=== PATIENT | male | born 1970 | race Caucasian/White ===

== ENCOUNTER → 2018-02-22 13:46 | Outpatient (CLI) | payer OTHER, SELFPAY ==
--- NOTE | 2018-02-22 13:54 | US_ITS ---
STUDY: RENAL ULTRASOUND - COMPLETE REASON FOR EXAM: Male, 47 years old. Left flank pain TECHNIQUE: Ultrasound evaluation of the kidneys was performed with real-time and static morales-scale imaging. COMPARISON: None. FINDINGS: RIGHT KIDNEY: Normal location of the right kidney, which is normal in size. The right kidney measures 13.5 x 7.5 x 5.5 cm. There is a lobular contoured cortex of the right kidney. The renal cortex measures 1.7 cm. There is no right renal mass or cyst. There are no right renal calculi. There is no right hydronephrosis. DISTAL RIGHT URETER: There is non-visualization of the distal right ureter. There is no demonstrated right ureterovesical junction calculus. There is a visualized right ureteral jet. LEFT KIDNEY: Normal location of the left kidney, which is normal in size. The left kidney measures 13 x 6.5 x 7 cm. There is a lobular contour to of the left kidney. The renal cortex measures 1.9 cm. There is no left renal mass or cyst. There are no left renal calculi. There is no left hydronephrosis. DISTAL LEFT URETER: There is non-visualization of the distal left ureter. There is no demonstrated left ureterovesical junction calculus. There is a visualized left ureteral jet. BLADDER: The distended urinary bladder has a volume of 310 ml. The empty urinary bladder has a volume of 35 ml. There is a normal wall thickness of the distended urinary bladder. There is no demonstrated mass within the urinary bladder. There are no demonstrated bladder calculi. US/Kidney and Bladder IMPRESSION: Normal ultrasound of the kidneys and urinary bladder. Electronically Signed: Marisol Meza MD at 6:37 EST , Service support ,
--- NOTE | 2018-02-22 13:55 | US_ITS ---
STUDY: SCROTUM ULTRASOUND REASON FOR EXAM: Male, 47 years old. Left scrotal and groin pain for several months TECHNIQUE: Ultrasound evaluation of the scrotum was performed with color Doppler and static garcia-scale imaging. COMPARISON: None. FINDINGS: RIGHT TESTICLE INTRATESTICULAR: There is a normal size of the right testicle. The right testicle measures 4.2 x 3 x 2.5 cm. There is a homogenous echotexture. There is normal arterial and normal venous vascularity. There is no demonstrated right testicular mass or cyst. EXTRATESTICULAR: The epididymis is normal in size. The epididymis head measures 0.6 x 1 x 0.9 cm. There is normal vascularity of the epididymis. There is no demonstrated epididymal cystic structure. There is a small hydrocele. There is no demonstrated varicocele. There is no demonstrated extratesticular mass or cyst. LEFT TESTICLE INTRATESTICULAR: There is a normal size of the left testicle. The left testicle measures 4.1 x 3 x 2.3 cm. There is a homogenous echotexture. There is normal arterial and normal venous vascularity. There is no demonstrated left testicular mass or cyst. EXTRATESTICULAR: The epididymis is normal in size. The epididymis head measures 0.8 x 1 x 0.8 cm. There is normal vascularity of the epididymis. There is no demonstrated epididymal cystic structure. There is no demonstrated hydrocele. There is no demonstrated varicocele. There is no demonstrated extratesticular mass or cyst. US/Testicular with Arterial Flow IMPRESSION: Normal bilateral testicles. Small bilateral hydroceles. Electronically Signed: Marisol Meza MD at 6:38 EST , Service support ,
--- OUTSIDE RECORDS SUMMARY | 2018-04-20 03:12 | XMS RPT_ITS ---
:1970 Author Organization [facility] Care Team Providers Name Role Phone SHANICE YOUNG Attending Unavailable HANNAH, SHANICE B Primary Care Unavailable HANNAH, SHANICE B Admitting Unavailable HANNAH, SHANICE B Attending Unavailable HANNAH, SHANICE B Primary Care Unavailable HANNAH, SHANICE B Admitting Unavailable HANNAH, SHANICE B Attending Unavailable HANNAH, SHANICE B Primary Care Unavailable HANNAH, SHANICE B Attending Unavailable HANNAH, SHANICE B Primary Care Unavailable HANNAH, SHANICE B Attending Unavailable HANNAH, SHANICE B Primary Care Unavailable HANNAH, SHANICE B Admitting Unavailable Genie Merritt Attending Unavailable Genie Merritt Referring Unavailable Hannah, Shanice Primary Care Unavailable PROBLEMS PROBLEMS DATE TYPE CONDITION / CODE ATTENDING STATUS SOURCE 02/22/2018 Unknown N50.82 - Scrotal Genie Merritt Active Esteban pain / M [facility] N50.82(ICD-10) Hospital Repository PROCEDURES PROCEDURES No Procedure Records FoundRESULTS RESULTS TESTICULAR WITH Observed: 02/22/2018 Status: F Source: ESTEBAN ARTERIAL FLOW 1:56 PM [facility] REPOSITORY [facility] Imaging Services [address] [place] [address] Testicular with Arterial Flow MR#: [id number] Acct: [id number] Name: NGOC DECKER Rep #: [id number] : 1970 M 47 From: Marisol Meza MD PCP: Shanice Young Status: REG CLI Study: Testicular with Arterial Flow Date of Exam: 02/22/18 Exam# [id number] Ordering Dr: Genie Merritt STUDY: SCROTUM ULTRASOUND REASON FOR EXAM: Male, 47 years old. Left scrotal and groin pain for several months TECHNIQUE: Ultrasound evaluation of the scrotum was performed with color Doppler and static garcia-scale imaging. COMPARISON: None. FINDINGS: RIGHT TESTICLE INTRATESTICULAR: There is a normal size of the right testicle. The right testicle measures 4.2 x 3 x 2.5 cm. There is a homogenous echotexture. There is normal arterial and normal venous vascularity. There is no demonstrated right testicular mass or cyst. EXTRATESTICULAR: The epididymis is normal in size. The epididymis head measures 0.6 x 1 x 0.9 cm. There is normal vascularity of the epididymis. There is no demonstrated epididymal cystic structure. There is a small hydrocele. There is no demonstrated varicocele. There is no demonstrated extratesticular mass or cyst. LEFT TESTICLE INTRATESTICULAR: There is a normal size of the left testicle. The left testicle measures 4.1 x 3 x 2.3 cm. There is a homogenous echotexture. There is normal arterial and normal venous vascularity. There is no demonstrated left testicular mass or cyst. EXTRATESTICULAR: The epididymis is normal in size. The epididymis head measures 0.8 x 1 x 0.8 cm. There is normal vascularity of the epididymis. There is no demonstrated epididymal cystic structure. There is no demonstrated hydrocele. There is no demonstrated varicocele. There is no demonstrated extratesticular mass or cyst. US/Testicular with Arterial Flow IMPRESSION: Normal bilateral testicles. Small bilateral hydroceles. Electronically Signed: Marisol Meza MD at 6:38 EST , Service support , CC: Shanice Young; Genie Merritt NP Truck Service Manager: Signed KIDNEY AND BLADDER Observed: 02/22/2018 Status: F Source: ESTEBAN 1:55 PM [facility] REPOSITORY [facility] Imaging Services [address] [place] [address] Kidney and Bladder MR#: [id number] Acct: [id number] Name: NGOC DECKER Rep #: [id number] : 1970 M 47 From: Marisol Meza MD PCP: Shanice Young Status: REG CLI Study: Kidney and Bladder Date of Exam: 02/22/18 Exam# [id number] Ordering Dr: Genie Merritt [employer] STUDY: RENAL ULTRASOUND - COMPLETE REASON FOR EXAM: Male, 47 years old. Left flank pain TECHNIQUE: Ultrasound evaluation of the kidneys was performed with real-time and static morales-scale imaging. COMPARISON: None. FINDINGS: RIGHT KIDNEY: Normal location of the right kidney, which is normal in size. The right kidney measures 13.5 x 7.5 x 5.5 cm. There is a lobular contoured cortex of the right kidney. The renal cortex measures 1.7 cm. There is no right renal mass or cyst. There are no right renal calculi. There is no right hydronephrosis. DISTAL RIGHT URETER: There is non-visualization of the distal right ureter. There is no demonstrated right ureterovesical junction calculus. There is a visualized right ureteral jet. LEFT KIDNEY: Normal location of the left kidney, which is normal in size. The left kidney measures 13 x 6.5 x 7 cm. There is a lobular contour to of the left kidney. The renal cortex measures 1.9 cm. There is no left renal mass or cyst. There are no left renal calculi. There is no left hydronephrosis. DISTAL LEFT URETER: There is non-visualization of the distal left ureter. There is no demonstrated left ureterovesical junction calculus. There is a visualized left ureteral jet. BLADDER: The distended urinary bladder has a volume of 310 ml. The empty urinary bladder has a volume of 35 ml. There is a normal wall thickness of the distended urinary bladder. There is no demonstrated mass within the urinary bladder. There are no demonstrated bladder calculi. US/Kidney and Bladder IMPRESSION: Normal ultrasound of the kidneys and urinary bladder. Electronically Signed: Marisol Meza MD at 6:37 EST , Service support , CC: Shanice Young; Genie Merritt NP Truck Service Manager: Signed CMP Collected: 03/30/2017 Status: F Source: CHURCH 8:37 AM [facility] REPOSITORY TYPE CODE TESTS RESULT OUT OF RANGE REFERENCE UNITS LAB 84037855(L 70-99 mg/dL OINC) High Glucose Lvl 255 LAB 93349719(L 8.4-10.2 mg/dL OINC) Calcium Normal Lvl 9.2 LAB 69288729(L 136-145 mEq/L OINC) Sodium Normal Lvl 136 LAB 70591743(L 3.5-5.1 mEq/L OINC) Normal Potassium Lvl 5.0 LAB 65957351(L 98-107 mEq/L OINC) Chloride Normal 104 LAB 07218946(L 24.0-30.0 mEq/L OINC) CO2 Normal 26.3 LAB 12417619(L 7-18 mg/dL OINC) BUN Normal 16 LAB 3803219(LO 0.6-1.3 mg/dL INC) Normal Creatinine 0.8 LAB 61635579(L 42-121 Int._Unit/ OINC) L Alk Phos Normal 87 LAB 10598153(L 0.2-1.0 mg/dL OINC) Bili Normal Total 0.5 LAB 66776979(L 3.2-5.0 G/DL OINC) Albumin Normal Lvl 4.1 LAB 19157972(L 6.4-8.3 G/DL OINC) Total Normal Protein 6.7 LAB 42199155(L 10-40 Int._Unit/ OINC) L ALT Normal 18 LAB 53914396(L 10-42 Int._Unit/ OINC) L AST Normal 21 LAB 18880275(L 5.4-30.0 ratio OINC) Normal BUN/Creat Ratio 20.0 LAB 69285895(L 2.0-4.0 G/DL OINC) Globulin Normal 2.6 LAB 03300875(L 1.1-1.9 ratio OINC) A/G Normal Ratio 1.6 Performed By: #### [id number] #### [facility] [address] [place] [address] EGFR Collected: 03/30/2017 Status: F Source: CHURCH 8:37 AM [facility] REPOSITORY Order Comment: Order added by Discern Expert. TYPE CODE TESTS RESULT OUT OF RANGE REFERENCE UNITS LAB 32356811(LO mL/min/1.73 INC) m2 Normal eGFR >60 LAB 40710526(LO mL/min/1.73 INC) m2 Normal eGFR AA >60 Performed By: #### [id number] #### [facility] [address] [place] [address] HGBA1C Collected: 03/30/2017 Status: F Source: CHURCH 8:37 AM [facility] REPOSITORY TYPE CODE TESTS RESULT OUT OF REFERENCE UNITS RANGE LAB 723328719( 4.0-6.3 % LOINC) High Hemoglobin A1c 9.2 Performed By: #### [id number] #### [facility] Chemistry Manual Subsection [address] [place] 0195605 ALLERGIES ALLERGIES DATE TYPE / CODE NAME / CODE REACTION SEVERITY SOURCE Drug/392102 lisinopril cough Shinto 003(SNOMED [facility]) System Repository Drug/912618 No Known Shinto 003(SNOMED Allergies [facility]) System Repository ENCOUNTERS ENCOUNTERS ADMIT/DISCHARGE ACCOUNT NUMBER ADMITTING ENCOUNTER LOCATION SOURCE CLASS 02/22/2018 [id number] Ambulatory [facility] ding:[place] Repository 12/16/2017/12/17/19 [id number] Ambulatory [address] ding:[facility] Repository 06/15/2017/06/16/[id number] [facility] ding:[facility] Repository IMRoom: Room 4 03/31/2017/03/31/19 [id number] HANNAH, Ambulatory [address] ding:[facility] Repository IMRoom: Room 3 03/30/2017/03/30/19 [id number] HANNAH, [address] ding:.[facility] Repository 03/24/2017/03/24/20 [id number] Ambulatory [address] ding:[facility] Repository IM PAYERS PAYERS ENCOUNTER GUARANTOR PAYER SUBSCRIBER SOURCE 02/22/2018 NGOC Riley Primary NGOC Orell[place] [address] [address] Insurance:[facility]: [facility] [id number] [address]Ssd: (419) Number: Repository [phone] () [id number] Date:[id number] [place] [address]AJ: 02/22/2018 Secondary NOT GIVENUNK [place] Insurance:SELF PAY [facility] Number: Effective Repository Date:2018-02-15 12/16/2017 NGOC JEANMARIE Primary Insurance:1500 NGOC MURRY Shintojose DECKERB: [facility]: [facility] N CAREPolicy Number: [id number] System [place], [place] Effective [address], Repository [address]Fyy: Date:2017-03-31 [place] [id number] [address]Awh: () Name:CD:[id number] [address] [place] [address] ()Tel: [phone]: [phone] 06/15/2017 NGOC MURRY Primary Insurance:1500 NGOC DECKERB: [facility]: [facility] N CAREPolicy Number: [id number] System [facility], [place] Effective [address], Repository [address]Abr: Date:2017-06-14 [place] [id number] [address]Dun: (HP) Name:CD:[id number] [address] [place] [address] ()Tel: [phone]: ([phone] 03/31/2017 NGOC JEANMARIE Primary Insurance[facility]: [facility] N CAREPolicy Number: [id number] System [place], [place] Effective [address], Repository [address]Ymb: Date:2017-03-18 - [place] [id number] [address]Otp: (HP) Name:CD:[id number] O [address] ()Tel: [phone]: ([phone] 03/30/2017 NGOC JEANMARIE [facility] Insurance:[facility]: [facility] N HEALTHCAREPolicy [id number] System [place], [place] Number: Effective [address], Repository [address]Zti: Date:2017-03-30 - [place] [id number] [phone]: (HP) Name:CD:[id number] [address] [place] [address] ()Tel: [phone]: ([phone] 03/24/2017 NGOC JEANMARIE Primary Insurance:1500 NGOC JEANMARIE Shinto [facility]: [facility]: [facility] N CAREPolicy Number: [id number] System [place], [place] Effective [address], Repository [address]Yaa: Date:2017-03-18 - [place] [id number] [id number]: (HP) Name:CD:[id number] [address], [place] ()Tel: [phone]: ([phone]
== END ==
PROVIDERS: Family Provider Physician Assistant Medical; PCP Physician Assistant Medical; Referring Provider Nurse Practitioner Adult Health; Visit Provider Nurse Practitioner Adult Health
DX: N50.82 Scrotal pain (principal); R10.9 Unspecified abdominal pain
CPT/HCPCS: 76770; 76870; 93976